=== PATIENT | female | born 1990 | race Caucasian/White ===

== ENCOUNTER 2022-07-15 21:05 | Emergency (ER) | payer BC ==
[~2022-07-15] VITALS: Ht 167.6 cm; Wt 69.4 kg
[2022-07-15 21:17] VITALS: BP_SYST 138
--- NOTE | 2022-07-15 21:17 | NUR ---
Triaged and placed patient back to the waiting room. No acute respiratory distress at this time. VSS. Informed patient to notify ED staff for any changes in condition or worsening of symptoms while waiting to be seen by a provider. Patient verbalized understanding.
[2022-07-15] MEDS ORDERED: KETOROLAC TROMETHAMINE 60 MG/2 ML VIAL IM ONE (21:45)
--- NOTE | 2022-07-15 21:47 | NUR ---
Patient placed in ER CHAIR 1 for evaluation. Bed in lowest position with siderails up. Instructed to notify ED staff for any changes in condition or worsening of symptoms. Patient verbalized understanding.
--- NOTE | 2022-07-15 21:49 | NUR ---
Dr. FONTENOT at bedside examining the patient.
[2022-07-15] MEDS ORDERED: MORPHINE 4 MG INJ. 4 MG/ML VIAL IM ONE (22:00)
[2022-07-15] MEDS ORDERED: cefTRIAXone 1 GM in LIDOCAINE 1%, 20 ML MDV 2.1 ML IM ONE (22:00)
[2022-07-15] MEDS ORDERED: LEVO750T64 PO (22:34)
[2022-07-15] MEDS ORDERED: NAPR-1172 PO (22:34)
[2022-07-15 22:38] VITALS: BP_SYST 135
--- NOTE | 2022-07-15 22:38 | NUR ---
Patient given written and verbal discharge instructions and verbalizes understanding. ER Dr Yu discussed with patient the results and treatment provided. Patient in stable condition. ID arm band removed. Rx of Naproxen and Levaquin given. Patient educated on pain management and to follow up with PMD. Pain Scale 3/10. Opportunity for questions provided and answered. Medication side effect fact sheet provided.
== END 2022-07-15 22:38 | disposition home or self-care (01) ==
LOC: SED 21:05
DX: H65.191 Other acute nonsuppurative otitis media, right ear (principal); H92.01 Otalgia, right ear; R51.9 Headache, unspecified; Z88.0 Allergy status to penicillin; Z79.899 Other long term (current) drug therapy
CPT/HCPCS: 99284; 96372; J0696; J1885; J2001; J2270